=== PATIENT | female | born 1990 | race Caucasian/White ===

== ENCOUNTER 2017-11-18 13:40 | Emergency (ER) | payer BC ==
[~2017-11-18] VITALS: Ht 152.4 cm; Wt 104.5 kg
[~2017-11-18 13:40] MED LIST: ANTI14DR2 OT; CARI350T PO
[2017-11-18 13:56] VITALS: BP 128/96
[2017-11-18] MEDS ORDERED: diphenhydrAMINE 25 MG/10 ML UD oral solution PO ONE (14:20)
[2017-11-18] MEDS ORDERED: dexamethasone sod phosphate 10mg/ml inj PO ONE (14:20)
== END 2017-11-18 14:47 | disposition home or self-care (01) ==
LOC: ER 13:41
DX: J06.9 Acute upper respiratory infection, unspecified (principal); J02.9 Acute pharyngitis, unspecified; Z87.442 Personal history of urinary calculi; Z88.8 Allergy status to other drugs, medicaments and biological substances; Z79.899 Other long term (current) drug therapy
CPT/HCPCS: 71045; 99283; J1100

== ENCOUNTER 2019-10-21 12:20 | Emergency (ER) | payer BC ==
[~2019-10-21] VITALS: Ht 172.7 cm; Wt 80.0 kg
[2019-10-21] MEDS ORDERED: naproxen 500mg tablet PO ONE (13:30)
[2019-10-21 13:46] LABS: BASOPHILS % (AUTO) 0.3 % (0-1); EOSINOPHILS # (AUTO) 0.1 X10'3 (0-0.9); EOSINOPHILS % (AUTO) 0.8 % (0-6); HEMOGLOBIN 13.8 g/dl (12.0-16.0); LYMPHOCYTES # (AUTO) 1.9 X10'3 (1.1-4.8); MEAN CORPUSCULAR HEMOGLOBIN 28.3 PG (27.0-31.0); MEAN CORPUSCULAR HGB CONC 33.7 g/dL (33.0-36.5); MEAN PLATELET VOLUME 6.9 FL (7.4-10.4); MONOCYTES # (AUTO) 0.5 X10'3 (0-0.9); MONOCYTES % (AUTO) 4.5 % (2-12); NEUTROPHILS # (AUTO) 8.5 X10'3 (1.8-7.7); NEUTROPHILS % (AUTO) 77.4 % (42-75); PLATELET COUNT 329 X10'3 (140-440); RED BLOOD COUNT 4.88 X10'6 (4.20-5.60); RED CELL DISTRIBUTION WIDTH 13.8 % (11.5-14.5)
--- NOTE | 2019-10-21 14:19 | NUR ---
obtained ua via sc and set patient up for gyno exam
[2019-10-21 14:20] LABS: ALANINE AMINOTRANSFERASE 34 U/L (12-78); ALBUMIN 3.2 G/DL (3.4-5.0); ALBUMIN/GLOBULIN RATIO 0.8 (1.1-1.5); ALKALINE PHOSPHATASE 70 IU/L (46-116); ANION GAP 5 (8-16); ASPARTATE AMINO TRANSFERASE 14 U/L (10-37); BILIRUBIN,TOTAL 0.5 MG/DL (0.1-1.0); BLOOD UREA NITROGEN 8 MG/DL (7-18); BUN/CREATININE RATIO 8.2 (6.6-38.0); CALCIUM 8.7 MG/DL (8.5-10.1); CHLORIDE 106 MMOL/L (99-107); CREATININE 0.98 MG/DL (0.40-0.90); GLUCOSE 100 MG/DL (70-104); POTASSIUM 4.1 MMOL/L (3.5-5.1); SODIUM 139 MMOL/L (135-145); TOTAL CARBON DIOXIDE 27.7 MMOL/L (24-32); TOTAL PROTEIN 7.3 G/DL (6.4-8.2); eGFR 66 ML/MIN
[2019-10-21 14:28] LABS: LIPASE 135 U/L (73-393)
[2019-10-21 14:29] LABS: CLARITY,URINE SLIGHTLY CLOUDY (Clear); COLOR,URINE YELLOW (Yellow); GLUCOSE, URINE NEGATIVE (Neg); KETONES,URINE NEGATIVE (Neg); LEUKOCYTE ESTERASE ,URINE NEGATIVE (Neg); NITRITES, URINE NEGATIVE (Neg); OCCULT BLOOD,URINE NEGATIVE (Neg); PH,URINE 6.5 (4.8-8.0); PROTEIN,URINE NEGATIVE (Neg); UROBILINOGEN,URINE 0.2 E.U/dL (0.2-1.0)
[2019-10-21 14:30] LABS: UA COLLECTION TYPE STRAIGHT CATH
[2019-10-21 14:35] LABS: MUCUS STRANDS MANY /LPF (Neg); SQUAMOUS EPITHELIAL CELL,UR MANY /LPF (FEW)
[2019-10-21 14:36] LABS: HYALINE CASTS 0-3 /LPF (NEGATIVE)
[2019-10-21 14:37] LABS: BACTERIA,URINE NONE SEEN /HPF (Neg); RBC,URINE 0-2 /HPF (0-2); WBC,URINE 0-4 /HPF (0-4)
[2019-10-21] MEDS ORDERED: ACET-3068 PO (15:45)
[2019-10-21 15:53] LABS: URINE HCG NEGATIVE (NEG)
[2019-10-21 15:59] VITALS: BP 119/74
== END 2019-10-21 16:02 | disposition home or self-care (01) ==
LOC: ER 12:20
DX: R10.2 Pelvic and perineal pain (principal); R10.32 Left lower quadrant pain; Z90.710 Acquired absence of both cervix and uterus; Z87.442 Personal history of urinary calculi; Z88.8 Allergy status to other drugs, medicaments and biological substances; Z79.899 Other long term (current) drug therapy
CPT/HCPCS: 36415; 76856; 80053; 81001; 81025; 83690; 85025; 87210; 99285; Q0112

== ENCOUNTER 2020-11-20 14:52 | Emergency (ER) | payer BC, MEDICAID ==
[~2020-11-20] VITALS: Ht 152.4 cm; Wt 107.2 kg
[2020-11-20 16:14] VITALS: BP 136/92
== END 2020-11-20 16:53 | disposition home or self-care (01) ==
LOC: ER 14:52
DX: M75.31 Calcific tendinitis of right shoulder (principal); G89.29 Other chronic pain; Z87.442 Personal history of urinary calculi; Z90.710 Acquired absence of both cervix and uterus; Z88.8 Allergy status to other drugs, medicaments and biological substances; Z79.899 Other long term (current) drug therapy
CPT/HCPCS: 73030; 99283

== ENCOUNTER 2021-04-16 10:49 | Emergency (ER) | payer MEDICAID ==
[~2021-04-16] VITALS: Ht 152.4 cm; Wt 106.8 kg
[2021-04-16 11:17] VITALS: BP 135/84
== END 2021-04-16 15:43 | disposition home or self-care (01) ==
LOC: ER 10:50
DX: N63.20 Unspecified lump in the left breast, unspecified quadrant (principal); G89.29 Other chronic pain; Z87.440 Personal history of urinary (tract) infections; Z87.442 Personal history of urinary calculi; Z90.710 Acquired absence of both cervix and uterus; Z88.8 Allergy status to other drugs, medicaments and biological substances; Z79.899 Other long term (current) drug therapy
CPT/HCPCS: 99281

== ENCOUNTER 2021-07-11 13:34 | Emergency (ER) | payer MEDICAID ==
[~2021-07-11] VITALS: Ht 152.4 cm; Wt 105.9 kg
[2021-07-11 14:38] VITALS: BP 129/72
[2021-07-11 15:11] LABS: BASOPHILS % (AUTO) 0.3 % (0-1); EOSINOPHILS # (AUTO) 0.1 X10'3 (0-0.9); EOSINOPHILS % (AUTO) 0.9 % (0-6); HEMATOCRIT 42.3 % (35.0-45.0); HEMOGLOBIN 14.3 g/dl (12.0-16.0); LYMPHOCYTES # (AUTO) 1.6 X10'3 (1.1-4.8); LYMPHOCYTES % (AUTO) 14.5 % (21-51); MEAN CORPUSCULAR HEMOGLOBIN 28.8 PG (27.0-31.0); MEAN CORPUSCULAR HGB CONC 33.9 g/dL (33.0-36.5); MEAN CORPUSCULAR VOLUME 84.9 FL (78-98); MEAN PLATELET VOLUME 6.9 FL (7.4-10.4); MONOCYTES # (AUTO) 0.6 X10'3 (0-0.9); MONOCYTES % (AUTO) 5.1 % (2-12); NEUTROPHILS # (AUTO) 8.9 X10'3 (1.8-7.7); NEUTROPHILS % (AUTO) 79.2 % (42-75); PLATELET COUNT 332 X10'3 (140-440); RED BLOOD COUNT 4.98 X10'6 (4.20-5.60); RED CELL DISTRIBUTION WIDTH 13.1 % (11.5-14.5); WHITE BLOOD COUNT 11.2 X10'3 (4.5-11.0)
[2021-07-11 15:28] LABS: ALANINE AMINOTRANSFERASE 30 U/L (12-78); ALBUMIN 3.6 G/DL (3.4-5.0); ALBUMIN/GLOBULIN RATIO 0.8 (1.1-1.5); ALKALINE PHOSPHATASE 72 IU/L (46-116); ANION GAP 8 (8-16); ASPARTATE AMINO TRANSFERASE 14 U/L (10-37); BILIRUBIN,TOTAL 0.7 MG/DL (0.1-1.0); BLOOD UREA NITROGEN 11 MG/DL (7-18); BUN/CREATININE RATIO 13.3 (6.6-38.0); CALCIUM 8.9 MG/DL (8.5-10.1); CHLORIDE 105 MMOL/L (99-107); CREATININE 0.83 MG/DL (0.40-0.90); GLUCOSE 96 MG/DL (70-104); SODIUM 138 MMOL/L (135-145); TOTAL CARBON DIOXIDE 25.5 MMOL/L (24-32); TOTAL PROTEIN 8.1 G/DL (6.4-8.2); eGFR 79 ML/MIN
[2021-07-11 17:21] LABS: CLARITY,URINE CLOUDY (Clear); COLOR,URINE YELLOW (Yellow); GLUCOSE, URINE NEGATIVE (Neg); KETONES,URINE TRACE mg/dl (Neg); LEUKOCYTE ESTERASE ,URINE MODERATE (Neg); NITRITES, URINE POSITIVE (Neg); OCCULT BLOOD,URINE LARGE (Neg); PROTEIN,URINE TRACE mg/dl (Neg); UROBILINOGEN,URINE 0.2 E.U/dL (0.2-1.0)
[2021-07-11 17:28] LABS: UA COLLECTION TYPE CLN CATCH MIDSTREAM
[2021-07-11 17:29] LABS: MUCUS STRANDS MANY /LPF (Neg); SQUAMOUS EPITHELIAL CELL,UR MANY /LPF (FEW)
[2021-07-11 17:31] LABS: WBC,URINE 30-50 /HPF (0-4)
[2021-07-11 17:32] LABS: BACTERIA,URINE 4+ /HPF (Neg)
[2021-07-11] MEDS ORDERED: phenazopyridine 100mg tablet PO ONE (17:50)
[2021-07-11] MEDS ORDERED: ciprofloxacin 250mg tablet PO ONE (17:50)
[2021-07-11] MEDS ORDERED: ondansetron 4mg rapidly disintigrating tab PO ONE (17:55)
[2021-07-11] MEDS ORDERED: ketorolac trometh inj. 60 MG/2 ML VIAL IM ONE (17:55)
[2021-07-11] MEDS ORDERED: ketorolac tromethamine 15mg/ml inj. IM ONE (17:55)
[2021-07-11] MEDS ORDERED: HYDROcodone/acetaminophen 5mg/325mg tablet PO ONE (17:55)
[2021-07-11] MEDS ORDERED: ONDA4TAB6 PO (18:02)
[2021-07-11] MEDS ORDERED: CIPR-259 PO (18:02)
[2021-07-11] MEDS ORDERED: HYDR-3965 PO (18:02)
== END 2021-07-11 18:23 | disposition home or self-care (01) ==
LOC: ER 13:34
DX: R10.9 Unspecified abdominal pain (principal); N12 Tubulo-interstitial nephritis, not specified as acute or chronic; G89.29 Other chronic pain; Z87.440 Personal history of urinary (tract) infections; Z87.442 Personal history of urinary calculi; Z90.710 Acquired absence of both cervix and uterus; Z88.8 Allergy status to other drugs, medicaments and biological substances; Z79.2 Long term (current) use of antibiotics; Z79.899 Other long term (current) drug therapy
CPT/HCPCS: 36415; 80053; 81001; 85025; 96372; 99284; J1885

== ENCOUNTER 2023-12-09 17:12 | Emergency (ER) | payer OTHER ==
[~2023-12-09] VITALS: Ht 152.4 cm; Wt 107.0 kg
[~2023-12-09 17:12] MED LIST changes: +ONDA4TAB6 PO; +SULF1TAB49 PO
[2023-12-09] MEDS: normal saline 1000ML IV soln IVB STA (17:25)
[2023-12-09] MEDS: methylPREDNISolone sod succ 125mg/2ml vial IV ONE (17:28)
[2023-12-09] MEDS: famotidine/PF 10 mg/ml inj IV ONE (17:28)
[2023-12-09] MEDS: epiNEPHrine 1 mg/ml inj SQ ONE (17:30)
[2023-12-09] MEDS: epiNEPHrine 1 mg/ml inj ONE (17:32)
[2023-12-09 17:33] VITALS: PULSE 114; PULSE 121; RESP 18; O2SAT 100
[2023-12-09] MEDS: albuterol 2.5 MG/3 ML nebule ONE (17:37)
[2023-12-09] MEDS: albuterol 2.5 MG/3 ML nebule NEB ONE (17:38)
[2023-12-09] MEDS: diphenhydrAMINE 50 mg/ml inj IV ONE (17:54)
[2023-12-09] MEDS ORDERED: EPIN0.3A3 IM (18:27)
[2023-12-09 18:54] VITALS: TEMP 98
[2023-12-09 21:51] VITALS: BP 144/93; PULSE 116; RESP 21; O2SAT 96
== END 2023-12-09 22:07 | disposition home or self-care (01) ==
LOC: ER 17:13
DX: R06.2 Wheezing (principal); T50.A95A Adverse effect of other bacterial vaccines, initial encounter; Y92.89 Other specified places as the place of occurrence of the external cause; R22.0 Localized swelling, mass and lump, head; Z88.8 Allergy status to other drugs, medicaments and biological substances; Z79.899 Other long term (current) drug therapy; Z90.710 Acquired absence of both cervix and uterus
CPT/HCPCS: 94640; 96361; 96372; 96374; 96375; 99285; J0171; J1200; J2919; J3490; J7030; 94760

== ENCOUNTER 2023-12-14 02:36 | Emergency (ER) | payer OTHER ==
[~2023-12-14] VITALS: Ht 152.4 cm; Wt 106.0 kg
[~2023-12-14 02:36] MED LIST changes: +EPIN0.3A3 IM
[2023-12-14 02:38] VITALS: TEMP 97.9
[2023-12-14 05:12] LABS: BASOPHILS # (AUTO) 0.1 X10'3 (0-0.2); BASOPHILS % (AUTO) 0.4 % (0-1); EOSINOPHILS # (AUTO) 0.5 X10'3 (0-0.9); EOSINOPHILS % (AUTO) 3.6 % (0-6); HEMATOCRIT 40.1 % (35.0-45.0); HEMOGLOBIN 13.5 g/dl (12.0-16.0); LYMPHOCYTES # (AUTO) 2.6 X10'3 (1.1-4.8); MEAN CORPUSCULAR HGB CONC 33.7 g/dL (33.0-36.5); MEAN PLATELET VOLUME 6.7 FL (7.4-10.4); MONOCYTES # (AUTO) 0.9 X10'3 (0-0.9); MONOCYTES % (AUTO) 6.4 % (2-12); NEUTROPHILS # (AUTO) 9.6 X10'3 (1.8-7.7); NEUTROPHILS % (AUTO) 70.6 % (42-75); PLATELET COUNT 445 X10'3 (140-440); RED BLOOD COUNT 4.67 X10'6 (4.20-5.60); RED CELL DISTRIBUTION WIDTH 13.2 % (11.5-14.5); WHITE BLOOD COUNT 13.6 X10'3 (4.5-11.0)
[2023-12-14 05:14] LABS: ALBUMIN 3.2 G/DL (3.4-5.0); ANION GAP 8 (8-16); BLOOD UREA NITROGEN 11 MG/DL (7-18); BUN/CREATININE RATIO 11.2 (10.0-20.0); CALCIUM 9.2 MG/DL (8.5-10.1); CHLORIDE 100 MMOL/L (99-107); CREATININE 0.98 MG/DL (0.40-0.90); GLUCOSE 108 MG/DL (70-104); POTASSIUM 3.7 MMOL/L (3.5-5.1); SODIUM 135 MMOL/L (135-145); TOTAL CARBON DIOXIDE 26.9 MMOL/L (24-32); eCRCL 58 ML/MIN; eGFR 65 ML/MIN
[2023-12-14] MEDS ORDERED: iohexol 300mg/ml 100ml inj. ONE (05:21)
[2023-12-14] MEDS: ceFAZolin 1GM/D5W- ADD-VANTAGE 50 ML IV ONE (05:52)
[2023-12-14] MEDS ORDERED: CEPH-585 PO (06:02)
[2023-12-14 06:17] VITALS: BP 132/90; PULSE 82; RESP 18; O2SAT 100
== END 2023-12-14 06:20 | disposition home or self-care (01) ==
LOC: ER 02:36
DX: L02.31 Cutaneous abscess of buttock (principal); Z88.8 Allergy status to other drugs, medicaments and biological substances; Z79.899 Other long term (current) drug therapy; Z90.710 Acquired absence of both cervix and uterus
CPT/HCPCS: 36415; 72193; 80048; 85025; 87070; 96365; 99285; J0690; J3490; Q9967; 87077; 87186; A6449

== ENCOUNTER 2024-08-22 03:26 | Emergency (ER) | payer SELFPAY ==
[~2024-08-22] VITALS: Ht 154.9 cm; Wt 98.0 kg
[~2024-08-22 03:26] MED LIST changes: -SULF1TAB49 PO
[2024-08-22 03:30] VITALS: TEMP 96.8
[2024-08-22] MEDS: acetaminophen 325mg tablet PO ONE (07:43)
[2024-08-22] MEDS ORDERED: AMOX-419 PO (07:44)
[2024-08-22] MEDS ORDERED: ACET15SO14 RIGHT EAR (07:44)
[2024-08-22 08:01] VITALS: BP 156/86; PULSE 86; RESP 16; O2SAT 98
== END 2024-08-22 08:03 | disposition home or self-care (01) ==
LOC: ER 03:26
DX: H66.91 Otitis media, unspecified, right ear (principal); G89.29 Other chronic pain; Z90.710 Acquired absence of both cervix and uterus; Z88.8 Allergy status to other drugs, medicaments and biological substances; Z87.442 Personal history of urinary calculi; Z88.7 Allergy status to serum and vaccine; Z79.899 Other long term (current) drug therapy
CPT/HCPCS: 99283

== ENCOUNTER 2024-08-24 04:28 | Emergency (ER) | payer MEDICAID ==
[~2024-08-24] VITALS: Ht 152.4 cm; Wt 107.1 kg
[~2024-08-24 04:28] MED LIST changes: +ACET15SO14 RIGHT EAR; +AMOX-419 PO
[2024-08-24 08:01] VITALS: BP 147/93; PULSE 77; RESP 14; O2SAT 97
[2024-08-24] MEDS ORDERED: LEVO-65 PO (08:12)
[2024-08-24] MEDS ORDERED: CIPR10DR RIGHT EAR (08:16)
[2024-08-24 08:35] VITALS: TEMP 97.9
== END 2024-08-24 08:44 | disposition home or self-care (01) ==
LOC: ER 04:29
DX: H66.91 Otitis media, unspecified, right ear (principal); H60.391 Other infective otitis externa, right ear; G89.29 Other chronic pain; Z90.710 Acquired absence of both cervix and uterus; Z88.1 Allergy status to other antibiotic agents; Z88.7 Allergy status to serum and vaccine; Z79.899 Other long term (current) drug therapy; Z87.442 Personal history of urinary calculi
CPT/HCPCS: 99283